=== PATIENT | male | born 1960 | race African-American/Black ===

== ENCOUNTER 2017-12-22 14:29 | Inpatient (IN) | payer MEDICARE, MEDICAID ==
--- NOTE | 2017-12-22 15:07 | ED Physician Chart ---
ED Chief Complaint/HPI - Patient Information Date Seen:: 12/22/17 Time Seen:: 14:55 Chief Complaint:: shortness of breath History of Present Illness:: Patient's had shortness of breath for 1 day. He's had mild substernal pleuritic chest pain. He has felt warm but he attributes that to the warm ambient temperature. He did not take his temperature. Patient's had increased sputum production of clear sputum with black flecks since June of this year. Allergies:: Allergies Allergy/AdvReac Type Severity Reaction Status Date / Time No Known Allergies Allergy Verified 12/22/17 14:58 Historian:: Patient Review:: Nurse's Note Reviewed ED Review of Systems - Review of Systems General/Constitutional: No fever, No chills, No weight loss, No weakness, No diaphoresis, No edema, No loss of appetite Skin: No skin lesions, No rash, No bruising Head: No headache, No light-headedness Eyes: No loss of vision, No pain, No diplopia ENT: No earache, No nasal drainage, No sore throat, No tinnitus Neck: No neck pain, No swelling, No thyromegaly, No stiffness, No mass noted Cardio Vascular: No chest pain, No palpitations, No PND, No orthopnea, No edema Pulmonary: SOB, Cough, No cough, No sputum, No wheezing GI: No nausea, No vomiting, No diarrhea, No pain, No melena, No hematochezia, No constipation, No hematemesis G/U: No dysuria, No frequency, No hematuria Musculoskeletal: No bone or joint pain, No back pain, No muscle pain Endocrine: No polyuria, No polydipsia Psychiatric: No prior psych history, No depression, No anxiety, No suicidal ideation Hematopoietic: No bruising, No lymphadenopathy Allergic/Immuno: No urticaria, No angioedema Neurological: No syncope, No focal symptoms, No weakness, No paresthesia, No headache, No seizure, No dizziness, No confusion, No vertigo ED Past Medical History - Past Medical History Past Medical History: HTN, Asthma/COPD, Other (bipolar) Family History: HTN Social History: Smoker, Alcohol, Other (smokes 2-3 cigarettes a day and drinks about 24 ounces of beer a day) Surgical History: None Medication: Reviewed ED Physical Exam - Physical Examination General/Constitutional: Awake, Well-developed, well-nourished, Alert, No distress, GCS 15, Non-toxic appearing, Ambulatory Head: Atraumatic Eyes: Lids, conjuctiva normal, PERRL, EOMI Skin: Nl inspection, No rash, No skin lesions, No ecchymosis, Well hydrated, No lymphadenopathy ENMT: External ears, nose nl, Nasal exam nl Other ENMT comments:: 2.5 out of 4 poor dental hygiene Neck: Nontender, Full ROM w/o pain, No JVD, No nuchal rigidity, No bruit, No mass, No stridor Respiratory: Nl effort/Exclusion, Clear to Auscultation, No Wheeze/Rhonchi/Rales Cardio Vascular: RRR, No murmur, gallop, rubs, NL S1 S2 GI: No tenderness/rebounding/guarding, No organomegaly, No hernia, Normal BS's, Nondistended, No mass/bruits, No McBurney tenderness : No CVA tenderness Extremities: No tenderness or effusion, Full ROM, normal strength in all extremities, No edema, Normal digits & nails Neuro/Psych: Alert/oriented, DTR's symmetric, Normal sensory exam, Normal motor strength, Judgement/insight normal, Mood normal, Normal gait, No focal deficits Misc: Normal back, No paraspinal tenderness ED Labs/Radiology/EKG Results - Lab Results Results: Laboratory Results - last 24 hr 12/22/17 12/22/17 12/22/17 15:10 15:10 15:10 WBC 7.3 RBC 3.98 L Hgb 12.4 Hct 37.1 L MCV 93.1 MCH 31.2 H MCHC Differential 33.6 RDW 12.2 Plt Count 407 H MPV 6.3 Neutrophils % 67.8 Lymphocytes % 26.7 Monocytes % 4.4 Eosinophils % 0.6 Basophils % 0.5 Sodium 136 Potassium 4.1 Chloride 106 Carbon Dioxide 22.2 Anion Gap 11.9 BUN 12 Creatinine 0.8 Est GFR ( Amer) > 60.0 Est GFR (Non-Af Amer) > 60.0 BUN/Creatinine Ratio 15.0 Glucose 86 Calcium 8.7 Troponin I B-Natriuretic Peptide 21.4 12/22/17 15:10 WBC RBC Hgb Hct MCV MCH MCHC Differential RDW Plt Count MPV Neutrophils % Lymphocytes % Monocytes % Eosinophils % Basophils % Sodium Potassium Chloride Carbon Dioxide Anion Gap BUN Creatinine Est GFR ( Amer) Est GFR (Non-Af Amer) BUN/Creatinine Ratio Glucose Calcium Troponin I < 0.01 L B-Natriuretic Peptide - Radiology Results Results: Chest x-ray negative - EKG Interpretations Rate & Rhythm: normal sinus rhythm with a rate of 69 Mondamin: normal Comments:: Left ventricular hypertrophy by voltage criteria; early repolarization ED Assessment - Assessment General Assessment: Patienr feels subjectively slightly improved after the albuterol/Atrovent breathing treatment. I spoke to Dr. Amanda Camp and patient be admitted. ED Septic Shock - . Is Septic Shock (SBP<90, OR Lactate>4 mmol\L) present?: No ED Reassessment (Disposition) - Reassessment Reassessment Condition:: Improved - Diagnosis Diagnosis:: Exacerbation COPD - Patient Disposition Admitted to:: Telemetry Condition at Disposition:: Stable, Improved
[2017-12-22 15:18] LABS: % BASOPHILS 0.5 % (0.0-2.0); % EOSINOPHILS 0.6 % (0.0-5.0); % LYMPHOCYTES 26.7 % (20.0-50.0); % MONOCYTES 4.4 % (2.0-10.0); % NEUTROPHILS 67.8 % (40.0-80.0); HEMATOCRIT 37.1 % (41.0-60); HEMOGLOBIN 12.4 gm/dL (12-16); LYMPHOCYTE ABSOLUTE 1.9 Th/cmm (1.5-3.0); MEAN CELL VOLUME 93.1 fl (80-99); MEAN CORPUSCULAR HEMOGLOBIN 31.2 pg (26.0-30.0); MEAN CORPUSCULAR HGB CONC 33.6 pg (28.0-36.0); MEAN PLATELET VOLUME 6.3 fl; MONOCYTE ABSOLUTE 0.3 Th/cmm (0.3-1.0); NEUTROPHILE ABSOLUTE 5.1 Th/cmm (1.8-8.0); PLATELET COUNT 407 Th/cmm (150-400); RED BLOOD COUNT 3.98 Mil/cmm (4.30-5.70); RED CELL DISTRIBUTION WIDTH 12.2 % (11.5-20.0); WHITE BLOOD COUNT 7.3 Th/cmm (4.8-10.8)
[2017-12-22] MEDS ORDERED: Albuterol/Ipratropium Neb 3 ML AERS HHN ONE ×2 (15:24→15:35)
[2017-12-22 15:47] LABS: ANION GAP 11.9 (7.0-16.0); BUN - UREA NITROGEN 12 mg/dL (7-25); CALCIUM SERUM 8.7 mg/dL (8.6-10.3); CARBON DIOXIDE 22.2 mEq/L (21.0-31.0); CHLORIDE 106 mEq/L (98-107); CREATININE - SERUM 0.8 mg/dL (0.7-1.3); GFR AFRICAN-AMERICAN > 60.0 ml/min (>90); GFR NON AFRICAN-AMERICAN > 60.0 ml/min; GLUCOSE 86 mg/dL (70-105); POTASSIUM SERUM 4.1 mEq/L (3.5-5.1); SODIUM SERUM 136 mEq/L (136-145)
[2017-12-22] MEDS ORDERED: Albuterol/Ipratropium Neb 3 ML AERS HHN PRN ×2 (17:56→17:59)
[2017-12-22] MEDS: INSULIN ASPART SLIDING SCALE 100 UNITS/ML UNIT SUBQ SCH (20:53)
--- NOTE | 2017-12-23 08:39 | Diagnostic Imaging Report ---
Portable chest x-ray Time: 1506 History: Evidence of breath Allowing for portable technique the heart size is normal. No focal pulmonary parenchymal processes. No hilar or mediastinal abnormalities. Impression: No acute abnormalities.
[2017-12-23] MEDS: INSULIN ASPART SLIDING SCALE 100 UNITS/ML UNIT SUBQ SCH ×4 (08:50→21:26)
[2017-12-23] MEDS: methylPREDNISolone SS 40 mg Vial IVP SCH (21:26)
--- NOTE | 2017-12-23 23:35 | Internal Medicine Prog Note ---
Internal Medicine Subjective - Subjective Service Date: 12/23/17 Patient seen and examined:: without staff Patient is:: awake, verbal, interactive, arousable, in bed Patient Complaints of:: congestion Per staff patient has:: no adverse event Internal Medicine Objective - Results Result Diagrams: 12/22/17 15:10 12/22/17 15:10 Recent Labs: Laboratory Last Values WBC 7.3 Th/cmm (4.8-10.8) 12/22/17 15:10 RBC 3.98 Mil/cmm (4.30-5.70) L 12/22/17 15:10 Hgb 12.4 gm/dL (12-16) 12/22/17 15:10 Hct 37.1 % (41.0-60) L 12/22/17 15:10 MCV 93.1 fl (80-99) 12/22/17 15:10 MCH 31.2 pg (26.0-30.0) H 12/22/17 15:10 MCHC Differential 33.6 pg (28.0-36.0) 12/22/17 15:10 RDW 12.2 % (11.5-20.0) 12/22/17 15:10 Plt Count 407 Th/cmm (150-400) H 12/22/17 15:10 MPV 6.3 fl 12/22/17 15:10 Neutrophils % 67.8 % (40.0-80.0) 12/22/17 15:10 Lymphocytes % 26.7 % (20.0-50.0) 12/22/17 15:10 Monocytes % 4.4 % (2.0-10.0) 12/22/17 15:10 Eosinophils % 0.6 % (0.0-5.0) 12/22/17 15:10 Basophils % 0.5 % (0.0-2.0) 12/22/17 15:10 Sodium 136 mEq/L (136-145) 12/22/17 15:10 Potassium 4.1 mEq/L (3.5-5.1) 12/22/17 15:10 Chloride 106 mEq/L (98-107) 12/22/17 15:10 Carbon Dioxide 22.2 mEq/L (21.0-31.0) 12/22/17 15:10 Anion Gap 11.9 (7.0-16.0) 12/22/17 15:10 BUN 12 mg/dL (7-25) 12/22/17 15:10 Creatinine 0.8 mg/dL (0.7-1.3) 12/22/17 15:10 Est GFR ( Amer) > 60.0 ml/min (>90) 12/22/17 15:10 Est GFR (Non-Af Amer) > 60.0 ml/min 12/22/17 15:10 BUN/Creatinine Ratio 15.0 12/22/17 15:10 Glucose 86 mg/dL (70-105) 12/22/17 15:10 POC Glucose 207 MG/DL (70 - 105) H 12/23/17 20:41 Calcium 8.7 mg/dL (8.6-10.3) 12/22/17 15:10 Troponin I < 0.01 ng/mL (0.01-0.05) L 12/23/17 05:50 B-Natriuretic Peptide 21.4 pg/mL (5.0-100.0) 12/22/17 15:10 TSH 0.63 uIU/ml (0.34-5.60) 12/23/17 05:50 - Physical Exam Vitals and I&O: Vital Signs Temp 97.4 F 12/23/17 15:17 Pulse 91 12/23/17 19:23 Resp 18 12/23/17 19:23 BP 138/85 12/23/17 15:17 Pulse Ox 93 12/23/17 19:23 Intake & Output 12/23/17 12/23/17 12/24/17 06:59 18:59 06:59 Intake Total 800 1200 Balance 800 1200 Weight (lbs) 58.967 kg 58.967 kg Intake: Oral 800 1200 Other: # Voids 3 3 # Bowel Movements 0 1 Weight Source Bedscale Bedscale Active Medications: Current Medications Albuterol/Ipratropium (Duoneb Neb) 3 ml HHN Q2H PRN PRN Reason: Wheezing or SOB Stop: 02/20/18 17:55 Insulin Aspart (Novolog Insulin Sliding Scale) 0 units SUBQ ACHS [facility]; Protocol Stop: 02/20/18 20:59 Last Admin: 12/23/17 21:26 Dose: 4 units Methylprednisolone Sodium Succinate (Solu-Medrol) 80 mg IVP Q8HR [facility] Stop: 12/24/17 13:01 Last Admin: 12/23/17 21:26 Dose: 80 mg Methylprednisolone Sodium Succinate (Solu-Medrol) 40 mg IVP DAILY [facility] Stop: 12/29/17 08:59 Methylprednisolone Sodium Succinate (Solu-Medrol) 60 mg IVP Q8HR [facility] Stop: 12/25/17 13:01 General: weak, lethargic, congested, NAD HEENT: NC/AT, PERRLA, EOMI, anicteric sclerae, throat clear Neck: Supple, No JVD, No thyromegaly, No LAD Lungs: wheezing, ronchi Cardiovascular: RRR, Normal S1, Normal S2 Abdomen: soft, non-tender, non-distended, positive bowel sound Extremities: clear, edema Neurological: no change Internal Medicine Assmt/Plan - Assessment Assessment: Copd Exacerbation:RT Protocol; Solumedrol taperimg. SOB: improving. CP: r/oed ACS by negative Troponin. Anxiety: monitoring. H/O mild Psychosis: continue meds. Weakness: fall precaution; PT. DVT Prophylaxis.
[2017-12-23] MEDS ORDERED: Non-Formulary Item 1 EA (Albuterol Sulfate [Proair Respiclick] 90 MCG) IH PRN (23:44)
--- NOTE | 2017-12-24 00:16 | History & Physical ---
ADMIT DATE: 12/22/2017 CHIEF COMPLAINT: Short of breath, severe weakness, and some chest pain. HISTORY OF PRESENT ILLNESS: The patient is a very nice 57-year-old -[place] male, patient of mine for a long time, who came to my office with complaint of short of breath, cough, and some chest pain, probably from his COPD exacerbation with some anxiety. The patient and his daughter insists on coming to the Emergency Room and his daughter drove him to the Emergency Room here. The patient does subjectively felt short of breath and some chest pain, however, the troponin was negative in the Emergency Room. The patient has had COPD and asthma for many years, partially due to smoking and/or noncompliance. Solu-Medrol was started during the patient in the Emergency Room. I also provided with proton pump inhibitor Protonix for gastric protection. The patient might also have early pneumonia though initial chest x-ray was unremarkable. PAST MEDICAL HISTORY: Pneumonia, COPD, asthma, anxiety, mild psychosis, hypertension, and urinary tract infection. PAST SURGICAL HISTORY: No significant past surgical history. MEDICATIONS: See medication reconciliation. ALLERGIES: No known drug allergies. FAMILY HISTORY: Noncontributory. SOCIAL HISTORY: The patient is ____ who are very reliable. The patient smoked heavily before, but still smoking somewhat. Denies alcohol or IV drug use. REVIEW OF SYSTEMS: As per HPI. PHYSICAL EXAMINATION: GENERAL: Well-developed and thin male in no acute distress. SKIN: Warm and dry. VITAL SIGNS: Basically stable. HEENT: Normocephalic and atraumatic. Pupils are equal, round, and react to light and accommodation. CHEST: Symmetrical. LUNGS: With wheezing appreciated bilaterally with a few rhonchi at lung base. HEART: Normal sinus rhythm. S1 and S2. ABDOMEN: Benign, soft, and nontender. EXTREMITIES: No clubbing, cyanosis, or edema ____. NEUROLOGIC: Unremarkable. LABORATORY DATA: Reviewed. ASSESSMENT AND PLAN: 1. Short of breath: Probably due to chronic obstructive pulmonary disease exacerbation. RT protocol ordered and Solu-Medrol with a taper started. 2. Chronic obstructive pulmonary disease exacerbation: Solu-Medrol tapering and RT protocol order. We will closely monitor the patient. 3. Chest pain: However, the patient's troponin was negative. We will repeat q.8h. x3. 4. Anxiety: Supportive care. 5. History of mild psychosis: Continue medication and monitor closely. 6. History of hypertension: We will observe closely, adjust medication as needed. 7. Weakness: Fall precaution and physical therapy. 8. Deep venous thrombosis prophylaxis. JOB# [id number]
[2017-12-24] MEDS ORDERED: Albuterol Nebulizer 2.5mg/3mL HHN PRN (00:28)
[2017-12-24] MEDS: methylPREDNISolone SS 40 mg Vial IVP SCH ×2 (05:17→12:37)
[2017-12-24 05:45] LABS: HEMATOCRIT 40.1 % (41.0-60); HEMOGLOBIN 13.4 gm/dL (12-16); MEAN CELL VOLUME 93.7 fl (80-99); MEAN CORPUSCULAR HEMOGLOBIN 31.3 pg (26.0-30.0); MEAN CORPUSCULAR HGB CONC 33.4 pg (28.0-36.0); MEAN PLATELET VOLUME 7.3 fl; MONOCYTE ABSOLUTE 0.6 Th/cmm (0.3-1.0); NEUTROPHILE ABSOLUTE 18.9 Th/cmm (1.8-8.0); PLATELET COUNT 431 Th/cmm (150-400); RED BLOOD COUNT 4.28 Mil/cmm (4.30-5.70); RED CELL DISTRIBUTION WIDTH 12.4 % (11.5-20.0)
[2017-12-24 06:10] LABS: WHITE BLOOD COUNT 20.5 Th/cmm (4.8-10.8)
[2017-12-24 06:20] LABS: BAND NEUTROPHILE 6 % (0-10); BASOPHIL 0 % (0-3); EOSINOPHIL 0 % (0-5); LYMPHOCYTE 7 % (20-50); MONOCYTE 2 % (2-10); NEUTROPHILS 85 % (40-80); PLATELET ESTIMATE ADEQUATE (NORMAL); PLATELET MORPHOLOGY NORMAL (NORMAL)
[2017-12-24] MEDS ORDERED: cefTRIAXone 1 GM in Sodium Chloride 0.9% 50 ML IV SCH (08:15)
[2017-12-24] MEDS: INSULIN ASPART SLIDING SCALE 100 UNITS/ML UNIT SUBQ SCH ×4 (09:40→22:14)
--- NOTE | 2017-12-24 12:55 | Internal Medicine Prog Note ---
Internal Medicine Subjective - Subjective Service Date: 12/24/17 Patient seen and examined:: without staff Patient is:: awake, verbal, interactive, arousable, in bed Patient Complaints of:: congestion Per staff patient has:: no adverse event Internal Medicine Objective - Results Result Diagrams: 12/24/17 04:53 12/22/17 15:10 Recent Labs: Laboratory Last Values WBC 20.5 Th/cmm (4.8-10.8) H* D 12/24/17 04:53 RBC 4.28 Mil/cmm (4.30-5.70) L 12/24/17 04:53 Hgb 13.4 gm/dL (12-16) 12/24/17 04:53 Hct 40.1 % (41.0-60) L 12/24/17 04:53 MCV 93.7 fl (80-99) 12/24/17 04:53 MCH 31.3 pg (26.0-30.0) H 12/24/17 04:53 MCHC Differential 33.4 pg (28.0-36.0) 12/24/17 04:53 RDW 12.4 % (11.5-20.0) 12/24/17 04:53 Plt Count 431 Th/cmm (150-400) H 12/24/17 04:53 MPV 7.3 fl 12/24/17 04:53 Add Manual Diff YES 12/24/17 04:53 Neutrophils % 67.8 % (40.0-80.0) 12/22/17 15:10 Band Neutrophils % 6 % (0-10) 12/24/17 04:53 Lymphocytes % 26.7 % (20.0-50.0) 12/22/17 15:10 Monocytes % 4.4 % (2.0-10.0) 12/22/17 15:10 Eosinophils % 0.6 % (0.0-5.0) 12/22/17 15:10 Basophils % 0.5 % (0.0-2.0) 12/22/17 15:10 Neutrophils (Manual) 85 % (40-80) H 12/24/17 04:53 Lymphocytes 7 % (20-50) L 12/24/17 04:53 Monocytes 2 % (2-10) 12/24/17 04:53 Eosinophils 0 % (0-5) 12/24/17 04:53 Basophils 0 % (0-3) 12/24/17 04:53 Platelet Estimate ADEQUATE (NORMAL) 12/24/17 04:53 Platelet Morphology NORMAL (NORMAL) 12/24/17 04:53 RBC Morph Micro Appear NORMAL (NORMAL) 12/24/17 04:53 Sodium 136 mEq/L (136-145) 12/22/17 15:10 Potassium 4.1 mEq/L (3.5-5.1) 12/22/17 15:10 Chloride 106 mEq/L (98-107) 12/22/17 15:10 Carbon Dioxide 22.2 mEq/L (21.0-31.0) 12/22/17 15:10 Anion Gap 11.9 (7.0-16.0) 12/22/17 15:10 BUN 12 mg/dL (7-25) 12/22/17 15:10 Creatinine 0.8 mg/dL (0.7-1.3) 12/22/17 15:10 Est GFR ( Amer) > 60.0 ml/min (>90) 12/22/17 15:10 Est GFR (Non-Af Amer) > 60.0 ml/min 12/22/17 15:10 BUN/Creatinine Ratio 15.0 12/22/17 15:10 Glucose 86 mg/dL (70-105) 12/22/17 15:10 POC Glucose 224 MG/DL (70 - 105) H 12/24/17 12:23 Calcium 8.7 mg/dL (8.6-10.3) 12/22/17 15:10 Troponin I < 0.01 ng/mL (0.01-0.05) L 12/23/17 05:50 B-Natriuretic Peptide 78.9 pg/mL (5.0-100.0) 12/24/17 04:53 TSH 0.63 uIU/ml (0.34-5.60) 12/23/17 05:50 - Physical Exam Vitals and I&O: Vital Signs Temp 99.0 F 12/24/17 11:48 Pulse 107 12/24/17 11:48 Resp 20 12/24/17 11:48 BP 122/77 12/24/17 11:48 Pulse Ox 96 12/24/17 11:48 Intake & Output 12/23/17 12/24/17 12/24/17 18:59 06:59 18:59 Intake Total 1200 240 50 Balance 1200 240 50 Weight (lbs) 58.967 kg 58.967 kg Intake: Intake, IV Amount 50 cefTRIAXone 1 gm In 50 Dextrose 5% 50 ml @ 100 mls/hr IV Q24HR [facility] Rx#: [id number] Oral 1200 240 Other: # Voids 3 2 # Bowel Movements 1 Stool Characteristics Soft Weight Source Bedscale Bedscale Active Medications: Current Medications Albuterol Sulfate (Albuterol 2.5mg/3ml Neb Ud) 2.5 mg HHN Q4HRT PRN PRN Reason: Shortness of Breath Stop: 02/22/18 00:27 Albuterol/Ipratropium (Duoneb Neb) 3 ml HHN Q2H PRN PRN Reason: Wheezing or SOB Stop: 02/20/18 17:55 Ceftriaxone Sodium 1 gm/ (Dextrose) 50 mls @ 100 mls/hr IV Q24HR [facility] Stop: 02/22/18 08:14 Last Infusion: 12/24/17 10:26 Dose: Infused Insulin Aspart (Novolog Insulin Sliding Scale) 0 units SUBQ ACHS [facility]; Protocol Stop: 02/20/18 20:59 Last Admin: 12/24/17 12:36 Dose: 4 units Methylprednisolone Sodium Succinate (Solu-Medrol) 80 mg IVP Q8HR [facility] Stop: 12/24/17 13:01 Last Admin: 12/24/17 12:37 Dose: 80 mg Methylprednisolone Sodium Succinate (Solu-Medrol) 40 mg IVP DAILY [facility] Stop: 12/29/17 08:59 Methylprednisolone Sodium Succinate (Solu-Medrol) 60 mg IVP Q8HR [facility] Stop: 12/25/17 13:01 Quetiapine Fumarate (Seroquel) 200 mg PO TID [facility]; Protocol Stop: 02/22/18 08:59 Last Admin: 12/24/17 08:44 Dose: 200 mg General: weak, lethargic, congested, NAD HEENT: NC/AT, PERRLA, EOMI, anicteric sclerae, throat clear Neck: Supple, No JVD, No thyromegaly, No LAD Lungs: wheezing, ronchi Cardiovascular: RRR, Normal S1, Normal S2 Abdomen: soft, non-tender, non-distended, positive bowel sound Extremities: clear, edema Neurological: no change Internal Medicine Assmt/Plan - Assessment Assessment: Acute leukocytosis: multifactorial; Empirical ABX started. Copd Exacerbation:RT Protocol; Solumedrol taperimg. SOB: improving. CP: r/oed ACS by negative Troponin. Anxiety: monitoring. H/O mild Psychosis: continue meds. Weakness: fall precaution; PT. DVT Prophylaxis.
[2017-12-24] MEDS ORDERED: methylPREDNISolone SS 40 mg Vial IVP SCH (21:00)
[2017-12-25] MEDS: INSULIN ASPART SLIDING SCALE 100 UNITS/ML UNIT SUBQ SCH ×4 (07:14→21:31)
[2017-12-25] MEDS ORDERED: methylPREDNISolone SS 40 mg Vial IVP SCH (09:00)
--- NOTE | 2017-12-25 23:42 | Internal Medicine Prog Note ---
Internal Medicine Subjective - Subjective Service Date: 12/25/17 Patient seen and examined:: without staff Patient is:: awake, verbal, interactive, arousable, in bed Patient Complaints of:: congestion Per staff patient has:: no adverse event Internal Medicine Objective - Results Result Diagrams: 12/24/17 04:53 12/22/17 15:10 Recent Labs: Laboratory Last Values WBC 20.5 Th/cmm (4.8-10.8) H* D 12/24/17 04:53 RBC 4.28 Mil/cmm (4.30-5.70) L 12/24/17 04:53 Hgb 13.4 gm/dL (12-16) 12/24/17 04:53 Hct 40.1 % (41.0-60) L 12/24/17 04:53 MCV 93.7 fl (80-99) 12/24/17 04:53 MCH 31.3 pg (26.0-30.0) H 12/24/17 04:53 MCHC Differential 33.4 pg (28.0-36.0) 12/24/17 04:53 RDW 12.4 % (11.5-20.0) 12/24/17 04:53 Plt Count 431 Th/cmm (150-400) H 12/24/17 04:53 MPV 7.3 fl 12/24/17 04:53 Add Manual Diff YES 12/24/17 04:53 Neutrophils % 67.8 % (40.0-80.0) 12/22/17 15:10 Band Neutrophils % 6 % (0-10) 12/24/17 04:53 Lymphocytes % 26.7 % (20.0-50.0) 12/22/17 15:10 Monocytes % 4.4 % (2.0-10.0) 12/22/17 15:10 Eosinophils % 0.6 % (0.0-5.0) 12/22/17 15:10 Basophils % 0.5 % (0.0-2.0) 12/22/17 15:10 Neutrophils (Manual) 85 % (40-80) H 12/24/17 04:53 Lymphocytes 7 % (20-50) L 12/24/17 04:53 Monocytes 2 % (2-10) 12/24/17 04:53 Eosinophils 0 % (0-5) 12/24/17 04:53 Basophils 0 % (0-3) 12/24/17 04:53 Platelet Estimate ADEQUATE (NORMAL) 12/24/17 04:53 Platelet Morphology NORMAL (NORMAL) 12/24/17 04:53 RBC Morph Micro Appear NORMAL (NORMAL) 12/24/17 04:53 Sodium 136 mEq/L (136-145) 12/22/17 15:10 Potassium 4.1 mEq/L (3.5-5.1) 12/22/17 15:10 Chloride 106 mEq/L (98-107) 12/22/17 15:10 Carbon Dioxide 22.2 mEq/L (21.0-31.0) 12/22/17 15:10 Anion Gap 11.9 (7.0-16.0) 12/22/17 15:10 BUN 12 mg/dL (7-25) 12/22/17 15:10 Creatinine 0.8 mg/dL (0.7-1.3) 12/22/17 15:10 Est GFR ( Amer) > 60.0 ml/min (>90) 12/22/17 15:10 Est GFR (Non-Af Amer) > 60.0 ml/min 12/22/17 15:10 BUN/Creatinine Ratio 15.0 12/22/17 15:10 Glucose 86 mg/dL (70-105) 12/22/17 15:10 POC Glucose 131 MG/DL (70 - 105) H 12/25/17 17:15 Calcium 8.7 mg/dL (8.6-10.3) 12/22/17 15:10 Troponin I < 0.01 ng/mL (0.01-0.05) L 12/23/17 05:50 B-Natriuretic Peptide 78.9 pg/mL (5.0-100.0) 12/24/17 04:53 TSH 0.63 uIU/ml (0.34-5.60) 12/23/17 05:50 - Physical Exam Vitals and I&O: Vital Signs Temp 98.2 F 12/25/17 20:00 Pulse 97 12/25/17 20:00 Resp 18 12/25/17 20:00 BP 143/84 12/25/17 20:00 Pulse Ox 94 12/25/17 20:00 Intake & Output 12/25/17 12/25/17 12/26/17 06:59 18:59 06:59 Intake Total 50 Balance 50 Weight (lbs) 58.967 kg Intake: Intake, IV Amount 50 cefTRIAXone 1 gm In 50 Dextrose 5% 50 ml @ 100 mls/hr IV Q24HR [facility] Rx#: [id number] Other: Stool Characteristics Soft Formed Brown Weight Source Bedscale Active Medications: Current Medications Albuterol Sulfate (Albuterol 2.5mg/3ml Neb Ud) 2.5 mg HHN Q4HRT PRN PRN Reason: Shortness of Breath Stop: 02/22/18 00:27 Albuterol/Ipratropium (Duoneb Neb) 3 ml HHN Q2H PRN PRN Reason: Wheezing or SOB Stop: 02/20/18 17:55 Ceftriaxone Sodium 1 gm/ (Dextrose) 50 mls @ 100 mls/hr IV Q24HR [facility] Stop: 02/22/18 08:14 Last Infusion: 12/25/17 13:22 Dose: Infused Insulin Aspart (Novolog Insulin Sliding Scale) 0 units SUBQ ACHS [facility]; Protocol Stop: 02/20/18 20:59 Last Admin: 12/25/17 21:31 Dose: Not Given Methylprednisolone Sodium Succinate (Solu-Medrol) 40 mg IVP DAILY [facility] Stop: 12/29/17 08:59 Quetiapine Fumarate (Seroquel) 200 mg PO TID [facility]; Protocol Stop: 02/22/18 08:59 Last Admin: 12/25/17 21:28 Dose: 200 mg General: weak, lethargic, congested, NAD HEENT: NC/AT, PERRLA, EOMI, anicteric sclerae, throat clear Neck: Supple, No JVD, No thyromegaly, No LAD Lungs: wheezing, ronchi Cardiovascular: RRR, Normal S1, Normal S2 Abdomen: soft, non-tender, non-distended, positive bowel sound Extremities: clear, edema Neurological: no change Internal Medicine Assmt/Plan - Assessment Assessment: Copd Exacerbation:RT Protocol; Solumedrol taperimg. Acute leukocytosis: multifactorial; Empirical ABX started. SOB: improving. CP: r/oed ACS by negative Troponin. Anxiety: monitoring. H/O mild Psychosis: continue meds. Weakness: fall precaution; PT. DVT Prophylaxis.
[2017-12-26 05:30] LABS: HEMATOCRIT 38.3 % (41.0-60); HEMOGLOBIN 13.1 gm/dL (12-16); MEAN CELL VOLUME 93.9 fl (80-99); MEAN CORPUSCULAR HEMOGLOBIN 32.1 pg (26.0-30.0); MEAN CORPUSCULAR HGB CONC 34.2 pg (28.0-36.0); MEAN PLATELET VOLUME 7.1 fl; PLATELET COUNT 418 Th/cmm (150-400); RED BLOOD COUNT 4.08 Mil/cmm (4.30-5.70); RED CELL DISTRIBUTION WIDTH 12.5 % (11.5-20.0)
[2017-12-26 05:42] LABS: ALB/GLOB RATIO 1.6 (1.0-1.8); ALBUMIN 3.6 gm/dL (4.2-5.5); ALKALINE PHOSPHATASE 77 U/L (34-104); ANION GAP 10.7 (7.0-16.0); BILIRUBIN,TOTAL 0.6 mg/dL (0.3-1.0); BUN - UREA NITROGEN 30 mg/dL (7-25); CARBON DIOXIDE 28.3 mEq/L (21.0-31.0); CHLORIDE 102 mEq/L (98-107); GFR AFRICAN-AMERICAN > 60.0 ml/min (>90); GFR NON AFRICAN-AMERICAN > 60.0 ml/min; GLUCOSE 95 mg/dL (70-105); SGOT 30 U/L (13-39); SGPT/ALT 48 U/L (7-52); SODIUM SERUM 137 mEq/L (136-145); TOTAL PROTEIN,SERUM 5.8 gm/dL (6.0-8.3)
[2017-12-26 06:29] LABS: BAND NEUTROPHILE 3 % (0-10); LYMPHOCYTE 27 % (20-50); MONOCYTE 4 % (2-10); NEUTROPHILS 66 % (40-80)
[2017-12-26] MEDS: INSULIN ASPART SLIDING SCALE 100 UNITS/ML UNIT SUBQ SCH ×4 (06:50→20:28)
[2017-12-26] MEDS: methylPREDNISolone SS 40 mg Vial IVP SCH ×2 (08:55→09:00)
--- NOTE | 2017-12-26 22:07 | Discharge Summary ---
DATE OF DISCHARGE: 12/26/2017 FINAL DIAGNOSES: 1. Chronic obstructive pulmonary disease exacerbation, improved with Solu-Medrol taper. 2. Leukocytosis, multifactorial on IVPB antibiotics. 3. Short of breath, improved. 4. Diabetes, improved. 5. Anxiety. 6. Chest pain, ruled out for acute coronary syndrome. 7. Weakness. HOSPITAL COURSE: The patient is a 57-year-old male admitted due to short of breath with some chest pain. Regarding the chest pain, the patient's troponin was negative x 3 and he probably just had a COPD exacerbation. RT protocol was carried out and the patient also started on Solu-Medrol with tapering. The patient's white count went up significantly and IVPB antibiotics was started. Per the patient's request, patient will be discharged to [facility] after been approved. DISCHARGE CONDITION: Stable. DISPOSITION: [facility]. DISCHARGE MEDICATIONS: Continue from here. DIET: Regular diet. ACTIVITY: Bed rest with physical therapy. FOLLOWUP: Same day in [place]. JOB# [id number]
== END 2017-12-26 20:35 | DRG 191 ==
LOC: ER 14:29 → TELE 15:45
PROVIDERS: ADMIT Internal Medicine; ATTEND Internal Medicine
DX: J44.1 Chronic obstructive pulmonary disease with (acute) exacerbation (principal); R64 Cachexia; Z68.1 Body mass index [BMI] 19.9 or less, adult; F41.9 Anxiety disorder, unspecified; D72.829 Elevated white blood cell count, unspecified; I10 Essential (primary) hypertension; F17.210 Nicotine dependence, cigarettes, uncomplicated; R07.9 Chest pain, unspecified; F29 Unspecified psychosis not due to a substance or known physiological condition; R53.1 Weakness; Z82.49 Family history of ischemic heart disease and other diseases of the circulatory system
CPT/HCPCS: 36415-UA; 71045-TC; 80048-TC; 80053-TC; 82948-90; 83880-TC; 84443-TC; 84484-TC; 85007-TC; 85025-TC; 87070; 93005; 94640; 94760; J0696; J1815; J2920; J2930